=== PATIENT | female | born 1970 | race African-American/Black ===

== ENCOUNTER 2021-12-21 12:11 | Outpatient (CLI) | payer OTHER ==
[2021-12-22 07:55] LABS: SARS-CoV-2 PCR by NAA Not Detected (NotDetected)
== END 2021-12-21 12:12 | disposition home or self-care (01) ==
LOC: CSHLAB 12:11
PROVIDERS: ATTEND Surgery
DX: Z20.822 Contact with and (suspected) exposure to COVID-19 (principal); Z12.11 Encounter for screening for malignant neoplasm of colon; K62.5 Hemorrhage of anus and rectum
CPT/HCPCS: U0003; U0005

== ENCOUNTER 2021-12-24 08:52 | Day surgery (SDC) | payer OTHER ==
[2021-12-18 13:38] VITALS: BMI 38.4
[2021-12-24] MEDS ORDERED: Lidocaine 1% MPF 2 ML VIAL ONE (09:04)
[2021-12-24] MEDS ORDERED: Midazolam HCl 2 mg/2 ml Vial ONE ×2 (10:16→10:46)
[2021-12-24] MEDS ORDERED: PROPOFOL 40 ML ONE (10:16)
[2021-12-24] MEDS ORDERED: PROPOFOL 20 ML ONE ×2 (10:57→11:09)
== END 2021-12-24 12:30 | disposition home or self-care (01) ==
LOC: CSHSDC 08:52
PROVIDERS: ATTEND Surgery
PROC: 0DBL8ZZ Excision of Transverse Colon, Via Natural or Artificial Opening Endoscopic (ICD-10-PCS; principal; 2021-12-24)
DX: K62.5 Hemorrhage of anus and rectum (principal); K63.5 Polyp of colon; K64.8 Other hemorrhoids; K59.00 Constipation, unspecified; E66.9 Obesity, unspecified; Z79.899 Other long term (current) drug therapy; E11.9 Type 2 diabetes mellitus without complications; Z79.84 Long term (current) use of oral hypoglycemic drugs; I10 Essential (primary) hypertension; E78.5 Hyperlipidemia, unspecified; F17.210 Nicotine dependence, cigarettes, uncomplicated
CPT/HCPCS: 36416; 88305; J2250; J2704

== ENCOUNTER 2025-09-24 14:23 | Outpatient (CLI) | payer OTHER | END 2025-09-24 14:24 | disposition home or self-care (01) | LOC: CSHMAMMO 14:23 | PROVIDERS: ATTEND Family Medicine | DX: Z12.31 Encounter for screening mammogram for malignant neoplasm of breast (principal); Z98.890 Other specified postprocedural states | CPT/HCPCS: 77063; 77067 ==